=== PATIENT | female | born 1980 | race American Indian/Alaskan Native ===

== ENCOUNTER 2017-06-03 01:50 | Emergency (ER) | payer SELFPAY ==
[2017-06-03 02:46] LABS: Basophils % (Auto) 0.4 % (0.0-1.8); Eosinophils % (Auto) 1.2 % (0.0-4.3); Hematocrit 43.1 % (30.3-42.9); Hemoglobin 14.3 gm/dl (10.1-14.3); Mean Corpuscular HGB Conc 33 % (30-34); Mean Corpuscular Hemoglobin 29 pg (28-32); Mean Corpuscular Volume 88 fl (79-97); Platelet Count 323 K/mm3 (140-440); Red Blood Count 4.89 M/mm3 (3.65-5.03); Red Cell Distribution Width 13.6 % (13.2-15.2); White Blood Count 13.9 K/mm3 (4.5-11.0)
[2017-06-03 02:59] LABS: Anion Gap 19 mmol/L; BUN/Creatinine Ratio 14.28; Blood Urea Nitrogen 10 mg/dL (7-17); Calcium 9.7 mg/dL (8.4-10.2); Carbon Dioxide 24 mmol/L (22-30); Chloride 97.5 mmol/L (98-107); Glucose 175 mg/dL (65-100); Potassium 4.4 mmol/L (3.6-5.0); Sodium 136 mmol/L (137-145)
[2017-06-03 07:42] VITALS: BP 127/80
[2017-06-03] MEDS ORDERED: TORADOL IM ONE (07:51)
[2017-06-03] MEDS ORDERED: PHENERGAN/CODEINE 6.25-10 MG/5ML PO ONE (08:00)
--- NOTE | 2017-06-03 08:50 | XRay Report ---
FINAL REPORT EXAM: XR CHEST ROUTINE 2V HISTORY: COUGH TECHNIQUE: PA and lateral chest radiographs PRIORS: None. FINDINGS: No mediastinal shift. Cardiac silhouette is not enlarged. No pneumothorax, effusion, or focal pulmonary opacity. No acute skeletal finding. IMPRESSION: No focal pulmonary opacity.
--- NOTE | 2017-06-03 10:48 | Emergency Department Report ---
Pediatric URI - HPI Chief Complaint: Upper Respiratory Infection Stated Complaint: SORE THROAT Duration: 3 Days Pain Location: Throat Severity: Mild Symptoms: Yes Sore Throat, Yes Cough, Yes Able to Tolerate Fluids, Yes Good Urine Output, No Rhinorrhea, No Ear Pain, No Shortness of Breath, No Sick Contacts, No Listless Behavior Other History: 36 year old female presents to ED with cough, sore throat and body aches. patient is stable, afebrile, neurologically intact and in no acute distress. patient denies fevers. patient states LMP was 05/17/2017. ED Review of Systems ROS: Stated complaint: SORE THROAT Other details as noted in HPI Constitutional: denies: chills, fever Eyes: denies: eye pain, eye discharge, vision change ENT: denies: ear pain, throat pain Respiratory: denies: cough, shortness of breath, wheezing Cardiovascular: denies: chest pain, palpitations Endocrine: no symptoms reported Gastrointestinal: denies: abdominal pain, nausea, diarrhea Genitourinary: denies: urgency, dysuria, discharge Musculoskeletal: denies: back pain, joint swelling, arthralgia Skin: denies: rash, lesions Neurological: denies: headache, weakness, numbness, paresthesias, confusion, abnormal gait, vertigo Psychiatric: denies: anxiety, depression Hematological/Lymphatic: denies: easy bleeding, easy bruising ED Peds URI Exam - Exam General: Vital signs noted. No distress. Alert and acting appropriately. HEENT: Yes Moist Mucous Membranes, No Pharyngeal Erythema, No Pharyngeal Exudates, No Rhinorrhea, No Conjuctival Injection, No Frontal Tenderness, No Maxillary Tenderness Ear: Neither TM Bulge, Neither TM Erythema, Neither EAC Pain, Neither EAC Discharge, Neither Cerumen Impaction Neck: Yes Supple, No Adenopathy Lungs: Yes Good Air Exchange, Yes Cough, No Wheezes, No Ronchi, No Stridor, No Labored Respirations, No Retractions, No Use of Accessory Muscles, No Other Abnormal Lung Sounds Heart: Yes Regular, No Murmur Abdomen: Yes Normal Bowel Sounds, No Tenderness, No Peritoneal Signs Skin: No Rash, No Eczema Neurologic: Alert and oriented, no deficits. Musculoskeletal: Unremarkable. ED Course Vital Signs 06/03/17 06/03/17 06/03/17 02:15 07:40 08:28 Temperature 98.7 F 99 F Pulse Rate 98 H 76 Respiratory 16 15 16 Rate Blood Pressure 134/84 Blood Pressure 127/80 [Right] O2 Sat by Pulse 98 99 Oximetry ED Medical Decision Making - Lab Data Result diagrams: 06/03/17 02:26 06/03/17 02:26 Labs 06/03/17 06/03/17 06/03/17 02:26 02:26 02:26 WBC 13.9 H RBC 4.89 Hgb 14.3 Hct 43.1 H MCV 88 MCH 29 MCHC 33 RDW 13.6 Plt Count 323 Lymph % (Auto) 18.2 [place] % (Auto) 12.0 H Eos % (Auto) 1.2 Baso % (Auto) 0.4 Lymph # 2.5 [place] # 1.7 H Eos # 0.2 Baso # 0.1 Seg Neutrophils % 68.2 Seg Neutrophils # 9.5 H Sodium 136 L Potassium 4.4 Chloride 97.5 L Carbon Dioxide 24 Anion Gap 19 BUN 10 Creatinine 0.7 Estimated GFR > 60 BUN/Creatinine Ratio 14.28 Glucose 175 H Calcium 9.7 HCG, Qual Negative - Radiology Data Radiology results: report reviewed XR chest no acute findings - Medical Decision Making 36 year old female presents to ED with cough, congestion, sore throat x 3 days. patient has negative rapid strep and no acute findings on CXR. patient denies medical history (DM, asthma, COPD, HIV). patient is stable, neurologically intact and in no acute distress. patient has blood cultures pending. Critical care attestation.: If time is entered above; I have spent that time in minutes in the direct care of this critically ill patient, excluding procedure time. ED Disposition Clinical Impression: Viral pharyngitis Disposition: DC-01 TO HOME OR SELFCARE Is pt being admited?: No Does the pt Need Aspirin: No Condition: Stable Instructions: Pharyngitis (ED) Prescriptions: guaiFENesin DM [Robitussin Dm] 5 ml PO BID #118 ml Meloxicam [Mobic] 7.5 mg PO QDAY #5 tablet Referrals: PRIMARY CARE, [Primary Care Provider] - 3-5 Days Forms: Work/School Release Form(ED)
== END 2017-06-03 09:40 | disposition home or self-care (01) ==
LOC: ED 01:50
DX: J02.8 Acute pharyngitis due to other specified organisms (principal); B97.89 Other viral agents as the cause of diseases classified elsewhere
CPT/HCPCS: 36415; 71020; 80048; 84703; 85025; 87040; 87116; 87430; 96372; 99284; J1885

== ENCOUNTER 2019-06-16 17:18 | Emergency (ER) | payer OTHER ==
[2019-06-16 17:45] VITALS: BP 183/92
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
[2019-06-16] MEDS ORDERED: ZOFRAN ODT PO ONE (19:30)
[2019-06-16] MEDS ORDERED: IBUPROFEN PO ONE (19:30)
[2019-06-16] MEDS ORDERED: NORCO 5/325 PO ONE (19:30)
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
== END 2019-06-16 20:36 | disposition home or self-care (01) ==
LOC: ED 17:18
DX: S83.91XA Sprain of unspecified site of right knee, initial encounter (principal); G44.319 Acute post-traumatic headache, not intractable; M62.830 Muscle spasm of back; Z79.899 Other long term (current) drug therapy; V49.49XA Driver injured in collision with other motor vehicles in traffic accident, initial encounter; Y93.89 Activity, other specified; Y92.410 Unspecified street and highway as the place of occurrence of the external cause; Y99.8 Other external cause status
CPT/HCPCS: 70450; 72100; Q0162